=== PATIENT | male | born 1985 ===

== ENCOUNTER 2023-07-31 17:56 | Emergency (ER) | payer BC ==
[~2023-07-31] VITALS: Ht 172.7 cm; Wt 90.9 kg
[2023-07-31 18:10] VITALS: TEMP 98.6
[2023-07-31 18:51] LABS: COLLECTION METHOD CLEAN CATCH
[2023-07-31 19:23] LABS: SQUAMOUS EPITHELIAL None Seen /hpf (0-10); URINE APPEARANCE Clear (CLEAR/HAZY); URINE BACTERIA None Seen /hpf (NONE SEEN); URINE BLOOD Negative (NEGATIVE); URINE COLOR Straw (YELLOW); URINE GLUCOSE Negative (NEGATIVE); URINE KETONE Negative (NEGATIVE); URINE NITRATE Negative (NEGATIVE); URINE PROTEIN(semi-quant) Negative (NEGATIVE); URINE RBC None Seen /hpf (0-2); URINE UROBILINOGEN 0.2 E.U/dL (0.2-1.0)
[2023-07-31 19:55] LABS: HEMATOCRIT 48.1 % (42.0-52.0); HEMOGLOBIN 15.7 g/dl (13.5-18.0); MEAN CELL VOLUME 86 fl (80.0-100.0); MEAN CORPUSCULAR HEMOGLOBIN 28 pg (27-31); MEAN CORPUSCULAR HGB CONC 33 g/dl (33.0-37.0); MEAN PLATELET VOLUME 9.4 fl (7.4-10.4); PLATELET COUNT 350 K/mm3 (130-400); RED BLOOD COUNT 5.58 M/mm3 (4.20-5.60); REDCELL DISTRIBUTION WIDTH-CV 11.8 % (11.5-14.5)
[2023-07-31 20:10] LABS: ALBUMIN 4.5 gm/dL (3.5-5.0); BILIRUBIN,TOTAL 0.7 mg/dL (0.2-1.2); C-REACTIVE PROTEIN 0.04 mg/dL (0.00-0.50); CALCIUM 10.1 mg/dL (8.4-10.2); CREATININE, serum 0.89 mg/dL (0.72-1.25); POTASSIUM 3.6 mmol/L (3.5-4.5); TOTAL PROTEIN 7.5 gm/dL (6.2-8.1)
[2023-07-31] MEDS ORDERED: Ketorolac 30 MG/ML VIAL IV ONE (20:15)
[2023-07-31] MEDS ORDERED: Ondansetron 4 MG/2 ML VIAL IV ONE (20:15)
[2023-07-31] MEDS ORDERED: NS 1,000 ML IV ONE (20:15)
[2023-07-31 20:43] LABS: LYMPHOCYTE 42 % (20.0-51.0); NEUTROPHILS 50 % (42.0-75.2); PLATELET ESTIMATE NORMAL (NORMAL)
[2023-07-31] MEDS ORDERED: Iohexol 300 - 100 ML VIAL IV ONE (21:43)
[2023-07-31] MEDS ORDERED: NS 60 ML IV ONE (21:44)
[2023-07-31] MEDS ORDERED: Home HYDROcodone/Acetaminophen 5/325 MG #4 TABS/PACK PO ONE (23:45)
[2023-07-31 23:54] VITALS: BP 124/78; PULSE 64
== END 2023-07-31 23:57 | disposition home or self-care (01) ==
LOC: COL.ER 17:56
PROVIDERS: Family Medicine; Nurse Practitioner
DX: R10.31 Right lower quadrant pain (principal); R55 Syncope and collapse; R11.2 Nausea with vomiting, unspecified
CPT/HCPCS: J1885; J2405; J7030; Q9967

== ENCOUNTER 2024-06-03 11:10 | Emergency (ER) | payer BC ==
[~2024-06-03] VITALS: Ht 172.7 cm; Wt 90.9 kg
[2024-06-03 11:28] VITALS: TEMP 98.4
[2024-06-03] MEDS ORDERED: NS 1,000 ML IV ONE (12:00)
[2024-06-03 12:07] LABS: BASO % 0.6 % (0.0-2.0); EOS # 0.2 K/mm3 (0.0-0.7); EOS % 2.4 % (0.0-4.0); GRAN # 4.5 K/mm3 (1.4-6.5); GRAN % 63.2 % (42.2-75.2); HEMATOCRIT 50.6 % (42.0-52.0); HEMOGLOBIN 17.5 g/dl (13.5-18.0); LYMPH # 1.9 K/mm3 (1.2-3.4); LYMPH % 27.2 % (20.0-51.0); MEAN CELL VOLUME 83 fl (80.0-100.0); MEAN CORPUSCULAR HEMOGLOBIN 29 pg (27-31); MEAN CORPUSCULAR HGB CONC 35 g/dl (33.0-37.0); MEAN PLATELET VOLUME 9.4 fl (7.4-10.4); MONO # 0.4 K/mm3 (0.1-0.6); MONO % 6.2 % (1.7-9.3); PLATELET COUNT 301 K/mm3 (130-400); RED BLOOD COUNT 6.11 M/mm3 (4.20-5.60); REDCELL DISTRIBUTION WIDTH-CV 11.7 % (11.5-14.5)
[2024-06-03 12:12] LABS: INR 1.1 (0.8-3.0); PROTHROMBIN TIME 11.5 SECONDS (9.7-12.8)
[2024-06-03 12:27] LABS: ALBUMIN 4.5 g/dL (3.5-5.0); BILIRUBIN,TOTAL 0.6 mg/dL (0.2-1.2); CALCIUM 9.7 mg/dL (8.4-10.2); CREATININE, serum 0.82 mg/dL (0.72-1.25); POTASSIUM 3.8 mEq/L (3.5-4.5); TOTAL PROTEIN 8.9 g/dl (6.2-8.1)
[2024-06-03 15:04] VITALS: BP 134/90; PULSE 86
== END 2024-06-03 15:04 | disposition home or self-care (01) ==
LOC: COL.ER 11:10
PROVIDERS: Physician Assistant
DX: G45.9 Transient cerebral ischemic attack, unspecified (principal); Z86.79 Personal history of other diseases of the circulatory system
CPT/HCPCS: J7030